=== PATIENT | male | born 1980 | race Caucasian/White ===

== ENCOUNTER 2017-02-13 13:51 | Emergency (ER) | payer BC ==
[~2017-02-13] VITALS: Ht 190.5 cm; Wt 121.3 kg
[2017-02-13] MEDS ORDERED: PERCOCET 7.51 TABLET PO (14:24)
[2017-02-13] MEDS ORDERED: CYCLOBENZAPRINE10 MG PO (14:24)
[2017-02-13 15:37] VITALS: BP 133/96
== END 2017-02-13 15:40 | disposition home or self-care (01) ==
LOC: EME 13:51
DX: M54.9 Dorsalgia, unspecified (principal); Z88.8 Allergy status to other drugs, medicaments and biological substances
CPT/HCPCS: 99281; 99284; J1100; J3010

== ENCOUNTER 2017-03-03 07:30 | Emergency (ER) | payer BC ==
[~2017-03-03] VITALS: Ht 190.5 cm; Wt 120.4 kg
[~2017-03-03 07:30] MED LIST: CYCLOBENZAPRINE10 MG PO; PERCOCET 7.51 TABLET PO
[2017-03-03] MEDS ORDERED: PREDNISONE20 MG PO ×2 (08:23→08:36)
[2017-03-03 11:23] VITALS: BP 155/101
== END 2017-03-03 11:26 | disposition home or self-care (01) ==
LOC: EME 07:30
DX: M54.16 Radiculopathy, lumbar region (principal); M79.605 Pain in left leg; R10.30 Lower abdominal pain, unspecified; W10.9XXA Fall (on) (from) unspecified stairs and steps, initial encounter; G89.29 Other chronic pain; R03.0 Elevated blood-pressure reading, without diagnosis of hypertension
CPT/HCPCS: 99281; 99284; J3010; J7512